=== PATIENT | female | born 1995 | race Caucasian/White ===

== ENCOUNTER 2020-10-05 19:12 | Emergency (ER) | payer MEDICAID ==
[2020-10-05] MEDS ORDERED: Acetaminophen/oxyCODONE 325-5 MG Tab PO ONE (19:34)
--- NOTE | 2020-10-05 19:50 | EDM.PDOC ---
ED HPI GENERAL MEDICAL PROBLEM - General Chief Complaint: Abdominal Pain Stated Complaint: RIGHT SIDE PAIN Time Seen by Provider: 10/05/20 19:21 Source of Information: Reports: Patient, RN Notes Reviewed - History of Present Illness INITIAL COMMENTS - FREE TEXT/NARRATIVE: 25 yr old female comes in with L low back and flank pain for 2 days that at times radiates to R groin. She was seen at the clinic a short time ago, Ua was checked, reported to be "normal". No voiding sx. No fever, chills, nausea or vomiting. No known recent injury. Hx of kidney stones. Still has her appendix. 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: UA prior to arrival Right Abdomen Pain Score (Numeric/FACES): 7 - Related Data Allergies Allergy/AdvReac Type Severity Reaction Status Date / Time Penicillins Allergy Anaphylactic Verified 10/05/20 19:22 Shock Home Meds: Home Meds ARIPiprazole [Abilify] 10 mg PO DAILY 10/05/20 [History] Acetaminophen/HYDROcodone [[place] 325-5 MG] 1 tab PO Q6H PRN #10 tablet 10/05/20 [Rx] Celecoxib [CeleBREX] 100 mg PO DAILY PRN 10/05/20 [History] Famotidine [Pepcid] 20 mg PO BEDTIME 10/05/20 [History] Loperamide [Imodium] 2 mg PO ASDIRECTED PRN 10/05/20 [History] Omeprazole 40 mg PO BID 10/05/20 [History] Propranolol [Inderal] 20 mg PO TID 10/05/20 [History] QUEtiapine [SEROquel] 50 - 100 mg PO BEDTIME 10/05/20 [History] lamoTRIgine [LaMICtal] 150 mg PO DAILY 10/05/20 [History] Past Medical History 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: 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: Psychiatric History: Reports: Bipolar - Past Surgical History HEENT Surgical History: Reports: Adenoidectomy, Tonsillectomy Female Surgical History: Reports: Kidney stone extraction, Lithotripsy/ESWL, Tubal Ligation, Ureteral Stent Social & Family History - Tobacco Use Tobacco Use Status *Q: Current Every Day Tobacco User Years of Tobacco use: 10 Packs/Tins Daily: 0.7 - Caffeine Use Caffeine Use: Reports: Coffee, Soda, Tea - Alcohol Use Days Per Week of Alcohol Use: 7 Number of Drinks Per Day: 6 Total Drinks Per Week: 42 - Recreational Drug Use Recreational Drug Use: Yes Drug Use in Last 12 Months: Yes Recreational Drug Type: Reports: Marijuana/Hashish ED ROS GENERAL - Review of Systems Review Of Systems: See Below Constitutional: Denies: Fever, Chills, Diaphoresis HEENT: Reports: No Symptoms Respiratory: Denies: Shortness of Breath Cardiovascular: Denies: Chest Pain GI/Abdominal: Reports: Abdominal Pain. Denies: Nausea, Vomiting : Denies: Dysuria, Frequency Musculoskeletal: Reports: Back Pain Skin: Reports: No Symptoms Neurological: Reports: No Symptoms ED EXAM,LOWER BACK PAIN/INJURY - Physical Exam Exam: See Below General Appearance: Alert, No Apparent Distress Head: Atraumatic Neck: Supple Respiratory/Chest: No Respiratory Distress, Lungs Clear, Normal Breath Sounds Cardiovascular: Regular Rate, Rhythm GI/Abdominal: Soft, Non-Tender. No: Guarding Back Exam: CVA Tenderness (R) (mild). No: Paraspinal Tenderness, Vertebral Tenderness Extremities: Normal Inspection, Normal Range of Motion Neurological: Alert, No Motor/Sensory Deficits Skin Exam: Warm, Dry, Normal Color, No Rash Course - Vital Signs Last Recorded V/S: Last Vital Signs Temp 97.5 F 10/05/20 19:26 Pulse 92 10/05/20 19:26 Resp 16 10/05/20 19:26 BP 135/85 10/05/20 19:26 Pulse Ox 98 10/05/20 19:26 - Orders/Labs/Meds Orders: Active Orders 24 hr Category Date Time Status Abdomen Pelvis wo Cont [CT] Stat Exams 10/05/20 19:33 Taken Labs: Laboratory Tests 10/05/20 10/05/20 Range/Units 19:43 19:43 WBC 13.85 H (3.98-10.04) K/mm3 RBC 4.77 (3.98-5.22) M/mm3 Hgb 13.6 (11.2-15.7) gm/dl Hct 43.2 (34.1-44.9) % MCV 90.6 (79.4-94.8) fl MCH 28.5 (25.6-32.2) pg MCHC 31.5 L (32.2-35.5) g/dl RDW Std Deviation 45.8 (36.4-46.3) fL Plt Count 292 (182-369) K/mm3 MPV 9.9 (9.4-12.3) fl Neut % (Auto) 62.5 (34.0-71.1) % Lymph % (Auto) 26.6 (19.3-51.7) % [place] % (Auto) 6.5 (4.7-12.5) % Eos % (Auto) 3.9 (0.7-5.8) Baso % (Auto) 0.2 (0.1-1.2) % Neut # (Auto) 8.66 H (1.56-6.13) K/mm3 Lymph # (Auto) 3.68 (1.18-3.74) K/mm3 [place] # (Auto) 0.90 H (0.24-0.36) K/mm3 Eos # (Auto) 0.54 H (0.04-0.36) K/mm3 Baso # (Auto) 0.03 (0.01-0.08) K/mm3 Manual Slide Review Normal smear C-Reactive Protein <0.2 (<1.0) mg/dL Meds: Medications Discontinued Medications Generic Name Dose Route Start Last Admin Trade Name Freq PRN Reason Stop Dose Admin Oxycodone/Acetaminophen 1 tab 10/05/20 19:34 10/05/20 19:40 Percocet 325-5 Mg PO 10/05/20 19:35 1 tab ONETIME ONE Administration - Re-Assessments/Exams Free Text/Narrative Re-Assessment/Exam: 10/05/20 21:14 CT does not show any acute findings, appendix visualized and appears normal. WBC 13,000, CRP 0.2. She states Ua checked at clinic this late afternoon was normal so that has not been repeated. Discharge instr. as documented. Departure - Departure Time of Disposition: 21:18 Disposition: Home, Self-Care 01 Condition: Fair Clinical Impression: Back pain Abdominal pain Qualifiers: Abdominal location: right lower quadrant Qualified Code(s): R10.31 - Right lower quadrant pain - Discharge Information Prescriptions: Acetaminophen/HYDROcodone [[place] 325-5 MG] 1 tab PO Q6H PRN #10 tablet PRN Reason: Pain Instructions: Acute Back Pain, Adult, Abdominal Pain, Adult, [id number] Referrals: Aby Murry MD [Primary Care Provider] - Forms: ED Department Discharge Additional Instructions: Clear liquids and very bland diet as tolerated. Alternate heat and ice packs as needed. Alternate tylenol and ibuprofen for mild to moderate discomfort or hydrocodone if needed for more severe pain. Prescription has been sent electronic to [facility]. See Dr Menendez Sunday as planned. Return to ED as needed. Sepsis Event Note (ED) - Evaluation Sepsis Screening Result: No Definite Risk - Focused Exam Vital Signs: Vital Signs Temp Pulse Resp BP Pulse Ox 10/05/20 19:26 97.5 F 92 16 135/85 98 - My Orders Last 24 Hours: My Active Orders 10/05/20 19:33 Abdomen Pelvis wo Cont [CT] Stat - Assessment/Plan Last 24 Hours: My Active Orders 10/05/20 19:33 Abdomen Pelvis wo Cont [CT] Stat
--- NOTE | 2020-10-06 09:04 | CT ---
CT abdomen and pelvis Technique: Multiple axial sections were obtained from above the dome of the diaphragm inferiorly through the pubic symphysis. Intravenous and oral contrast not utilized. Study has been performed as a ureteral stone protocol. Comparison: No previous study is available. Findings: Small portion of the visualized lung bases show nothing acute. Liver is enlarged and shows diffuse fatty infiltration. Spleen appears within normal limits. Adrenal glands show no nodule. Pancreas shows no discrete abnormality. Gallbladder is mostly collapsed without definite calcifications to indicate calcified gallstones. Both kidneys show multiple small nonobstructing calculi. Calculi measure 5.9 mm and less in length. No hydronephrosis is seen within either kidney. No ureteral dilatation or ureteral stone is seen. No bladder calculi are seen. Aorta shows no aneurysm. No retroperitoneal adenopathy or mesenteric abnormalities are seen. Appendix is seen which is normal. No pelvic mass or adenopathy is identified. No free fluid or inflammatory change is appreciated. Bone window settings were reviewed. No acute osseous abnormality is appreciated. Impression: 1. Numerous nonobstructing small calculi within both kidneys. No ureteral dilatation or ureteral stone is seen. 2. Fatty infiltration within the liver. 3. Nothing acute is definitely appreciated. Diagnostic code #3 I agree with preliminary report from [facility], finalized on 10/05/20, 9:45 PM [employer]
== END 2020-10-05 21:25 | disposition home or self-care (01) ==
LOC: JD.ED 19:12
DX: R10.31 Right lower quadrant pain (principal); M54.5 Low back pain; K21.9 Gastro-esophageal reflux disease without esophagitis; Z88.0 Allergy status to penicillin; Z79.899 Other long term (current) drug therapy; Z72.0 Tobacco use
CPT/HCPCS: 36415; 74176; 74176-26; 85025; 86140; 99284; 99284-25; A9270-GY

== ENCOUNTER 2020-10-31 09:39 | Emergency (ER) | payer MEDICAID ==
[2020-10-31] MEDS ORDERED: Ondansetron 4 MG Tab.DIS ONE (10:26)
[2020-10-31] MEDS ORDERED: Ondansetron 4 MG Tab.DIS PO STA (10:27)
--- NOTE | 2020-10-31 10:45 | EDM.PDOC ---
<Joe Ng Reza - Last Filed: 10/31/20 10:45> ED HPI GENERAL MEDICAL PROBLEM - General Chief Complaint: Back Pain or Injury Stated Complaint: KIDNEY PAIN/ R SIDE BACK PAIN Time Seen by Provider: 10/31/20 10:45 Right Middle Back Pain Score (Numeric/FACES): 8 - Related Data Allergies Allergy/AdvReac Type Severity Reaction Status Date / Time Penicillins Allergy Anaphylactic Verified 10/31/20 09:51 Shock Home Meds: Home Meds ARIPiprazole [Abilify] 10 mg PO DAILY 10/05/20 [History] Celecoxib [CeleBREX] 100 mg PO DAILY PRN 10/05/20 [History] Famotidine [Pepcid] 20 mg PO BEDTIME 10/05/20 [History] Loperamide [Imodium] 2 mg PO ASDIRECTED PRN 10/05/20 [History] Omeprazole 40 mg PO BID 10/05/20 [History] Propranolol [Inderal] 20 mg PO TID 10/05/20 [History] QUEtiapine [SEROquel] 50 - 100 mg PO BEDTIME 10/05/20 [History] lamoTRIgine [LaMICtal] 150 mg PO DAILY 10/05/20 [History] Levothyroxine [Synthroid] 50 mcg PO DAILY 10/31/20 [History] Past Medical History 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: Psychiatric History: Reports: Bipolar - Past Surgical History HEENT Surgical History: Reports: Adenoidectomy, Tonsillectomy Female Surgical History: Reports: Kidney stone extraction, Lithotripsy/ESWL, Tubal Ligation, Ureteral Stent Social & Family History - Tobacco Use Tobacco Use Status *Q: Current Every Day Tobacco User Years of Tobacco use: 5 Packs/Tins Daily: 0.7 - Caffeine Use Caffeine Use: Reports: None - Recreational Drug Use Recreational Drug Use: No Departure - Discharge Information Referrals: Aby Murry MD [Primary Care Provider] - Forms: ED Department Discharge Sepsis Event Note (ED) - Evaluation Sepsis Screening Result: No Definite Risk <Charity Ashley - Last Filed: 10/31/20 11:43> ED HPI GENERAL MEDICAL PROBLEM - General Source of Information: Reports: Patient, RN Notes Reviewed History Limitations: Reports: No Limitations Course - Vital Signs Last Recorded V/S: Last Vital Signs Temp 97.5 F 10/31/20 09:47 Pulse 98 10/31/20 09:47 Resp 16 10/31/20 09:47 BP 122/93 H 10/31/20 09:47 Pulse Ox 98 10/31/20 09:47 - Orders/Labs/Meds Orders: Active Orders 24 hr Category Date Time Status Abdomen Pelvis wo Cont [CT] Stat Exams 10/31/20 11:17 Ordered Labs: Laboratory Tests 10/31/20 Range/Units 10:20 Urine Color Yellow (Yellow) Urine Appearance Clear (Clear) Urine pH 6.5 (5.0-8.0) Ur Specific [place] 1.020 (1.005-1.030) Urine Protein Negative (Negative) Urine Glucose (UA) Negative (Negative) Urine Ketones Negative (Negative) Urine Occult Blood Negative (Negative) Urine Nitrite Negative (Negative) Urine Bilirubin Negative (Negative) Urine Urobilinogen 0.2 (0.2-1.0) Ur Leukocyte Esterase Negative (Negative) Meds: Medications Discontinued Medications Generic Name Dose Route Start Last Admin Trade Name Freq PRN Reason Stop Dose Admin Cyclobenzaprine HCl 10 mg 10/31/20 11:21 10/31/20 11:31 Flexeril PO 10/31/20 11:22 10 mg ONETIME ONE Administration Ketorolac Tromethamine 60 mg 10/31/20 11:21 10/31/20 11:31 Toradol IM 10/31/20 11:22 60 mg ONETIME ONE Administration Ondansetron HCl Confirm 10/31/20 10:26 10/31/20 10:28 Zofran Odt Administered 10/31/20 10:27 Not Given Dose 4 mg .ROUTE .STK-MED ONE Ondansetron HCl 4 mg 10/31/20 10:27 10/31/20 10:28 Zofran Odt PO 10/31/20 10:28 4 mg ONETIME STA Administration Sepsis Event Note (ED) - Focused Exam Vital Signs: Vital Signs Temp Pulse Resp BP Pulse Ox 10/31/20 09:47 97.5 F 98 16 122/93 H 98 - My Orders Last 24 Hours: My Active Orders 10/31/20 11:17 Abdomen Pelvis wo Cont [CT] Stat - Assessment/Plan Last 24 Hours: My Active Orders 10/31/20 11:17 Abdomen Pelvis wo Cont [CT] Stat
[2020-10-31] MEDS ORDERED: Cyclobenzaprine 10 MG Tab PO ONE (11:21)
[2020-10-31] MEDS ORDERED: Ketorolac 60 MG/2 ML SDV IM ONE (11:21)
--- NOTE | 2020-10-31 11:46 | EDM.PDOC ---
ED HPI GENERAL MEDICAL PROBLEM - General Chief Complaint: Back Pain or Injury Stated Complaint: KIDNEY PAIN/ R SIDE BACK PAIN Time Seen by Provider: 10/31/20 10:45 Source of Information: Reports: Patient, RN Notes Reviewed History Limitations: Reports: No Limitations - History of Present Illness INITIAL COMMENTS - FREE TEXT/NARRATIVE: Patient is a 25-year-old female presenting to the emergency department with complaints of right lower back pain. Pain is worse with movement and with urination. States this has been going on for a number of weeks. She was seen in this emergency department on [address] scan was done at that time and showed a number of calculi within the kidneys but not within the ureters. She states that since that time she was seen by her primary care provider who advised her that she feels the pain is musculoskeletal in nature and recommends that she see physical therapy. She has not done this thus far. The pain has been worse over the last couple days. She is convinced that it is being caused by her kidney. She has taken Tylenol and ibuprofen with little relief. She does have some nausea but has had no vomiting. Denies any fever or chills. Right Middle Back Pain Score (Numeric/FACES): 8 - Related Data Allergies Allergy/AdvReac Type Severity Reaction Status Date / Time Penicillins Allergy Anaphylactic Verified 10/31/20 09:51 Shock Home Meds: Home Meds ARIPiprazole [Abilify] 10 mg PO DAILY 10/05/20 [History] Celecoxib [CeleBREX] 100 mg PO DAILY PRN 10/05/20 [History] Famotidine [Pepcid] 20 mg PO BEDTIME 10/05/20 [History] Loperamide [Imodium] 2 mg PO ASDIRECTED PRN 10/05/20 [History] Omeprazole 40 mg PO BID 10/05/20 [History] Propranolol [Inderal] 20 mg PO TID 10/05/20 [History] QUEtiapine [SEROquel] 50 - 100 mg PO BEDTIME 10/05/20 [History] lamoTRIgine [LaMICtal] 150 mg PO DAILY 10/05/20 [History] Cyclobenzaprine [Flexeril] 10 mg PO TID PRN #10 tab 10/31/20 [Rx] Levothyroxine [Synthroid] 50 mcg PO DAILY 10/31/20 [History] Naproxen [Naprosyn] 500 mg PO Q12HR 5 Days #10 tab 10/31/20 [Rx] Past Medical History 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: 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 Denies: Fever, Chills, Weakness HEENT: Reports: No Symptoms Respiratory: Reports: No Symptoms Cardiovascular: Reports: No Symptoms Endocrine: Reports: No Symptoms GI/Abdominal: Reports: Nausea. Denies: Abdominal Pain, Vomiting : Reports: No Symptoms Musculoskeletal: Reports: Back Pain Skin: Reports: No Symptoms Neurological: Reports: No Symptoms Psychiatric: Reports: No Symptoms Hematologic/Lymphatic: Reports: No Symptoms Immunologic: Reports: No Symptoms ED EXAM,LOWER BACK PAIN/INJURY - Physical Exam Exam: See Below General Appearance: Alert, WD/WN, No Apparent Distress Respiratory/Chest: No Respiratory Distress, Lungs Clear, Normal Breath Sounds, No Accessory Muscle Use, Chest Non-Tender Cardiovascular: Normal Peripheral Pulses, Regular Rate, Rhythm, No Edema, No Gallop, No JVD, No Murmur, No Rub GI/Abdominal: Normal Bowel Sounds, Soft, Non-Tender, No Organomegaly, No Distention, No Abnormal Bruit, No Mass Back Exam: Normal Inspection, Full Range of Motion, CVA Tenderness (R), Paraspinal Tenderness (To superficial touch) Neurological: Alert, Normal Mood/Affect, Normal Dorsiflexion, CN II-XII Intact, Normal Plantar Flexion, Normal Gait, Normal Reflexes, No Motor/Sensory Deficits, Oriented x 3 Psychiatric: Normal Affect, Normal Mood Skin Exam: Warm, Dry, Intact, Normal Color, No Rash Course - Vital Signs Last Recorded V/S: Last Vital Signs Temp 97.5 F 10/31/20 09:47 Pulse 98 10/31/20 09:47 Resp 16 10/31/20 09:47 BP 122/93 H 10/31/20 09:47 Pulse Ox 98 10/31/20 09:47 - Orders/Labs/Meds Labs: Laboratory Tests 10/31/20 Range/Units 10:20 Urine Color Yellow (Yellow) Urine Appearance Clear (Clear) Urine pH 6.5 (5.0-8.0) Ur Specific [place] 1.020 (1.005-1.030) Urine Protein Negative (Negative) Urine Glucose (UA) Negative (Negative) Urine Ketones Negative (Negative) Urine Occult Blood Negative (Negative) Urine Nitrite Negative (Negative) Urine Bilirubin Negative (Negative) Urine Urobilinogen 0.2 (0.2-1.0) Ur Leukocyte Esterase Negative (Negative) Meds: Medications Discontinued Medications Generic Name Dose Route Start Last Admin Trade Name Freq PRN Reason Stop Dose Admin Cyclobenzaprine HCl 10 mg 10/31/20 11:21 10/31/20 11:31 Flexeril PO 10/31/20 11:22 10 mg ONETIME ONE Administration Ketorolac Tromethamine 60 mg 10/31/20 11:21 10/31/20 11:31 Toradol IM 10/31/20 11:22 60 mg ONETIME ONE Administration Ondansetron HCl Confirm 10/31/20 10:26 10/31/20 10:28 Zofran Odt Administered 10/31/20 10:27 Not Given Dose 4 mg .ROUTE .STK-MED ONE Ondansetron HCl 4 mg 10/31/20 10:27 10/31/20 10:28 Zofran Odt PO 10/31/20 10:28 4 mg ONETIME STA Administration - Re-Assessments/Exams Free Text/Narrative Re-Assessment/Exam: Patient is a 25-year-old female presenting to the emergency department with complaints of ongoing right back pain. She states symptoms are worse with voiding. Urinalysis was connected by triage nurse and shows no blood or infection in her urine. On exam, she does have CVA tenderness but is also quite tender to superficial palpation of the right paraspinous muscles. I highly suspect this is musculoskeletal in nature, however it was decided to repeat the CT scan to ensure that the kidney stones are not moving. We will give her Toradol 60 mg IM as well as Flexeril 10 mg p.o. 10/31/20 12:10 CT of the abdomen pelvis shows multiple nonobstructing calculi within both kidneys with no ureteral dilatation or ureteral stone seen. Also has fatty infiltrates throughout the liver. This is unchanged from her previous CT. Discussed with patient that her pain is likely musculoskeletal is Dr. Dumas advised. I will send a prescription for Naprosyn and Flexeril. Recommend that she schedule an appointment with physical therapy as recommended by her primary care provider. Discharge instructions as documented. Departure - Departure Time of Disposition: 12:10 Disposition: Home, Self-Care 01 Condition: Good Clinical Impression: Back pain Qualifiers: Back pain location: low back pain Chronicity: acute Back pain laterality: right Sciatica presence: without sciatica Qualified Code(s): M54.5 - Low back pain - Discharge Information *PRESCRIPTION DRUG MONITORING PROGRAM REVIEWED*: No *COPY OF PRESCRIPTION DRUG MONITORING REPORT IN PATIENT MARVA: No Prescriptions: Cyclobenzaprine [Flexeril] 10 mg PO TID PRN #10 tab PRN Reason: Muscle Spasm Naproxen [Naprosyn] 500 mg PO Q12HR 5 Days #10 tab Instructions: Acute Back Pain, Adult Referrals: Aby Murry MD [Primary Care Provider] - Forms: ED Department Discharge Additional Instructions: You were seen in the emergency department today for evaluation with regards to ongoing right-sided back pain. Urinalysis and CT scan were completed and both were found to be normal. He did not have any active moving kidney stones and you do not have a urinary tract infection. As we discussed, your pain is musculoskeletal in nature. A prescription for Naprosyn and Flexeril has been sent to [facility]. Uses medications as prescribed. Recommend scheduling an appointment with physical therapy as recommended by your primary care provider. If pain does not improve, recommend follow-up in the clinic with your PCP or return to ER as needed. Sepsis Event Note (ED) - Evaluation Sepsis Screening Result: No Definite Risk - Focused Exam Vital Signs: Vital Signs Temp Pulse Resp BP Pulse Ox 10/31/20 09:47 97.5 F 98 16 122/93 H 98
--- NOTE | 2020-10-31 11:54 | CT ---
CT abdomen and pelvis Technique: Multiple axial sections were obtained from above the kidneys inferiorly through the pubic symphysis. Intravenous and oral contrast was not utilized. Study has been performed as a renal stone protocol. Comparison: Prior CT abdomen and pelvis exam of 10/05/20. Findings: Visualized lung bases showed nothing acute. Diffuse fatty infiltration is seen within the liver. Gallbladder contains no calcified gallstones. Spleen appears normal in size. Adrenal glands show no nodule. Pancreas shows no discrete abnormality. Aorta shows no aneurysm. Small scattered lymph nodes within the retroperitoneum are seen which are most likely normal. Appendix is seen which is normal in size. No pelvic mass or adenopathy is seen. Minimal diverticulosis is seen within the sigmoid colon with no inflammatory change. Multiple small nonobstructing calculi are noted within both kidneys. No ureteral dilatation is seen. No abnormal calcifications are seen along the course of the ureters. Bone window settings were reviewed which show no acute osseous abnormality. Impression: 1. Multiple nonobstructing calculi within both kidneys. No ureteral dilatation or ureteral stone is seen. 2. Fatty infiltration throughout the liver. 3. No acute abnormality is seen on noncontrast CT study of the abdomen and pelvis. Diagnostic code #3
== END 2020-10-31 12:25 | disposition home or self-care (01) ==
LOC: JD.ED 09:39
DX: M54.5 Low back pain (principal); R11.0 Nausea; K21.9 Gastro-esophageal reflux disease without esophagitis; Z72.0 Tobacco use; Z79.899 Other long term (current) drug therapy; Z88.0 Allergy status to penicillin
CPT/HCPCS: 74176; 81003; 96372; 99284; A9270; J1885

== ENCOUNTER 2020-12-30 06:14 | Emergency (ER) | payer MEDICAID ==
[2020-12-30] MEDS ORDERED: LORazepam 1 MG Tab PO ONE (06:39)
--- NOTE | 2020-12-30 06:46 | EDM.PDOCBH ---
ED HPI GENERAL MEDICAL PROBLEM - General Chief Complaint: Behavioral/Psych Stated Complaint: SOB POSS ANXIETY NAUSEA Time Seen by Provider: 12/30/20 06:27 Source of Information: Reports: Patient History Limitations: Reports: No Limitations - History of Present Illness INITIAL COMMENTS - FREE TEXT/NARRATIVE: Ms. Russo is a pleasant 25-year-old woman with a past medical history significant for anxiety, depression, and bipolar affective disorder, currently prescribed Seroquel and Lamictal, who now presents to the ED stating that she has been suffering from a panic attack for approximately 1 week, including symptoms of dyspnea, feeling anxious, diaphoresis, and insomnia, along with 4 days of nausea and vomiting, and some watery diarrhea today. No recent fever. The patient states that she has been compliant with her medications. She states that she has had similar symptoms countless times in the past. She acknowledges that she has not contacted either her PCP or her Psychiatrist.her symptoms over the past week. Here in the ED, the patient is found to be slightly tachycardic at 106 bpm, with tachypnea of 24 rpm. She is otherwise hemodynamically stable, afebrile, saturating 99% on room air. She appears to be quite anxious, pacing the exam room. Prior to 1 week ago, the patient denies having a recent fever, chills, sore throat, ear pain, nasal or sinus congestion, cough, dyspnea, chest pain, palpitations, nausea, vomiting, constipation, diarrhea, abdominal pain, urinary symptoms, recent weight gain or weight loss, recent bloody bowel movements or black bowel movements, recent joint aches, headaches, or rashes. The patient's PCP is Dr. Aby Menendez. She does not recall the name of her Psychiatrist, at [facility]. - Related Data Allergies Allergy/AdvReac Type Severity Reaction Status Date / Time Penicillins Allergy Anaphylactic Verified 12/30/20 06:25 Shock Home Meds: Home Meds ARIPiprazole [Abilify] 10 mg PO DAILY 10/05/20 [History] Celecoxib [CeleBREX] 100 mg PO DAILY PRN 10/05/20 [History] Famotidine [Pepcid] 20 mg PO BEDTIME 10/05/20 [History] Loperamide [Imodium] 2 mg PO ASDIRECTED PRN 10/05/20 [History] Omeprazole 40 mg PO BID 10/05/20 [History] Propranolol [Inderal] 20 mg PO TID 10/05/20 [History] QUEtiapine [SEROquel] 50 - 100 mg PO BEDTIME 10/05/20 [History] lamoTRIgine [LaMICtal] 150 mg PO DAILY 10/05/20 [History] Cyclobenzaprine [Flexeril] 10 mg PO TID PRN #10 tab 10/31/20 [Rx] Levothyroxine [Synthroid] 50 mcg PO DAILY 10/31/20 [History] Naproxen [Naprosyn] 500 mg PO Q12HR 5 Days #10 tab 10/31/20 [Rx] Past Medical History 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: GERD Genitourinary History: Reports: Renal Calculus Psychiatric History: Reports: Anxiety, Bipolar, Depression Endocrine/Metabolic History: Reports: Hypothyroidism, Obesity/BMI 30+ - Past Surgical History HEENT Surgical History: Reports: Adenoidectomy, Tonsillectomy Female Surgical History: Reports: Kidney stone extraction, Lithotripsy/ESWL, Tubal Ligation, Ureteral Stent Social & Family History - Tobacco Use Tobacco Use Status *Q: Current Every Day Tobacco User Years of Tobacco use: 11 Packs/Tins Daily: 0.8 Tobacco Use Comment: Started smoking at 14 yrs old - Caffeine Use Caffeine Use: Reports: None - Alcohol Use Alcohol Use History: No - Recreational Drug Use Recreational Drug Use: Yes Drug Use in Last 12 Months: Yes Recreational Drug Type: Reports: Marijuana/Hashish ("whenever I can") - Living Situation & Occupation Living situation: Reports: Single, with Significant Other (Boyfriend), with Family (3 kids) Occupation: Unemployed ED ROS GENERAL - Review of Systems Review Of Systems: Comprehensive ROS is negative, except as noted in HPI. ED EXAM, BEHAVIORAL HEALTH - Physical Exam Exam: See Below Exam Limited By: No Limitations General Appearance: Alert, WD/WN, No Apparent Distress, Anxious Eye Exam: Bilateral Eye: EOMI, Normal Inspection Ears: Normal External Exam, Hearing Grossly Normal Nose: Normal Inspection Throat/Mouth: Normal Inspection, Normal Lips, Normal Voice, No Airway Compromise Head: Atraumatic, Normocephalic Neck: Normal Inspection, Full Range of Motion Respiratory/Chest: No Respiratory Distress, Lungs Clear, Normal Breath Sounds, No Accessory Muscle Use Cardiovascular: Normal Peripheral Pulses, Regular Rate, Rhythm, No Gallop, No JVD, No Murmur, No Rub GI/Abdominal: Normal Bowel Sounds, Soft, Non-Tender, No Organomegaly, No Distention, No Abnormal Bruit, No Mass Back Exam: Normal Inspection, Full Range of Motion, NT Extremities: Normal Inspection, Normal Range of Motion, Normal Capillary Refill Neurological: Alert, Normal Cognition, No Motor/Sensory Deficits, Oriented x 3 Psychiatric: Restless (pacing the exam room) Skin Exam: Warm, Dry, Intact, Normal color, No rash COURSE, BEHAVIORAL HEALTH COMP - Course Vital Signs: Last Vital Signs Temp 36.6 C 12/30/20 06:22 Pulse 106 H 12/30/20 06:22 Resp 24 H 12/30/20 06:22 BP 125/90 12/30/20 06:22 Pulse Ox 99 12/30/20 06:22 Orders, Labs, Meds: Medications Discontinued Medications Generic Name Dose Route Start Last Admin Trade Name Freq PRN Reason Stop Dose Admin Lorazepam 1 mg 12/30/20 06:39 Lorazepam 1 Mg Tab PO 12/30/20 06:40 ONETIME ONE Medical Clearance: 12/30/20 06:40 As above, the patient has been feeling extremely anxious for the past week, including dyspnea, diaphoresis, and insomnia, with nausea and vomiting for the past 4 days, and some diarrhea today. She has been compliant with her prescribed psychiatric medications, however, she did not contact her PCP or her Psychiatrist about her current symptoms. For today's purposes, I will give the patient a single dose of Ativan, however, I explained to the patient that I am not going to be prescribing any additional, because her PCP is well aware of her recurrent anxiety symptoms, and has elected, for whatever reason, to not prescribe a benzodiazepine as treatment. I explained to the patient that it would not be appropriate for us to go behind Dr. Menendez's back and prescribe one. Since today is , there is no reason why the patient cannot contact Dr. Menendez's office later this morning. The patient is in agreement. Departure - Departure Time of Disposition: 06:43 Disposition: Home, Self-Care 01 Condition: Good Clinical Impression: Panic attack - Discharge Information *PRESCRIPTION DRUG MONITORING PROGRAM REVIEWED*: Not Applicable *COPY OF PRESCRIPTION DRUG MONITORING REPORT IN PATIENT MARVA: Not Applicable Referrals: Aby Murry MD [Primary Care Provider] - Additional Instructions: You were seen in the emergency room for symptoms of anxiety, including shortness of breath, sweatiness, and insomnia, with 4 days of nausea vomiting, and diarrhea today. You were treated with a single dose of the sedative Ativan, however, as explained, a prescription for Ativan was not provided, as the decision to prescribe such a medicine is up to your PCP, Dr. Aby Menendez. We recommend that you call the office of Dr. Menendez this morning, to see what she recommends. If any other problems, please do not hesitate to return to the ER. Sepsis Event Note (ED) - Evaluation Sepsis Screening Result: No Definite Risk - Focused Exam Vital Signs: Vital Signs Temp Pulse Resp BP Pulse Ox 12/30/20 06:22 36.6 C 106 H 24 H 125/90 99
== END 2020-12-30 06:52 | disposition home or self-care (01) ==
LOC: JD.ED 06:14
DX: F41.0 Panic disorder [episodic paroxysmal anxiety] (principal); K21.9 Gastro-esophageal reflux disease without esophagitis; E03.9 Hypothyroidism, unspecified; E66.9 Obesity, unspecified; Z72.0 Tobacco use; Z68.32 Body mass index [BMI] 32.0-32.9, adult; Z88.0 Allergy status to penicillin; Z79.899 Other long term (current) drug therapy
CPT/HCPCS: 99283; A9270

== ENCOUNTER 2021-02-02 08:30 | Emergency (ER) | payer MEDICAID ==
[2021-02-02] MEDS ORDERED: HYDROmorphone 0.5 MG/0.5 ML Syringe IVPUSH ONE (08:55)
[2021-02-02] MEDS ORDERED: Ondansetron 4 MG/2 ML SDV IVPUSH ONE (08:55)
--- NOTE | 2021-02-02 08:55 | EDM.PDOC ---
ED HPI GENERAL MEDICAL PROBLEM - General Chief Complaint: Abdominal Pain Stated Complaint: DIARRHEA/BLOOD IN STOOL/VOMITING/ABDOMINAL PAIN Time Seen by Provider: 02/02/21 08:46 Source of Information: Reports: Patient History Limitations: Reports: No Limitations - History of Present Illness INITIAL COMMENTS - FREE TEXT/NARRATIVE: 25-year-old female presents to the ED with bleeding per rectum. Patient reports that she has had a chronic issues for many years of intestinal hurry and chronic diarrhea. She has had colonoscopies and other investigations with no positive diagnoses. She has been vomiting over the night. She has been on the toilet since about 3:00 this morning and had multiple loose diarrhea stools usually yellow and mucousy. Usually food will go through her within about 20 minutes of eating. Associated mild diffuse lower abdominal cramping pain. This morning she had bright red blood per rectum on multiple occasions with wiping. She has no known history of hemorrhoids. Patient is on numerous antipsychotic medications. She takes loperamide or Imodium at least once or twice daily to slow her bowels down. She has not taken any medicine for medications this morning. Only previous abdominal surgery has been that of laparoscopic tubal ligation Onset: Other (Chronic issues with intermittent bleeding per rectum) Duration: Chronic, Getting Worse Location: Reports: Abdomen (Chronic abdominal cramping pain with yellow diarrhea. Today is associate with bright red bleeding per rectum. Unlikely to be related to foodborne illness.), Lower Extremity, Right Quality: Reports: Other Severity: Moderate (Bright red blood per rectum particular noted with wiping.) Improves with: Reports: None Worsens with: Reports: Eating Context: Reports: Other (Chronic diarrhea with intestinal hurry.). Denies: Activity (Eating will make it worse.), Exercise, Lifting, Sick Contact, Trauma Associated Symptoms: Reports: Loss of Appetite, Malaise, Nausea/Vomiting, Weakness. Denies: Confusion, Chest Pain, Cough, cough w sputum, Diaphoresis, Fever/Chills, Headaches, Rash, Seizure (Nausea today with vomiting overnight. Bilious emesis with no blood), Shortness of Breath, Syncope Treatments KETTLE HAND: Reports: Other (see below) Middle Abdomen Pain Score (Numeric/FACES): 6 - Related Data Allergies Allergy/AdvReac Type Severity Reaction Status Date / Time Penicillins Allergy Anaphylactic Verified 02/02/21 08:44 Shock Home Meds: Home Meds Celecoxib [CeleBREX] 100 mg PO DAILY PRN 10/05/20 [History] Loperamide [Imodium] 2 mg PO ASDIRECTED PRN 10/05/20 [History] Omeprazole 40 mg PO BID 10/05/20 [History] Propranolol [Inderal] 20 mg PO TID 10/05/20 [History] QUEtiapine [SEROquel] 50 - 100 mg PO BEDTIME 10/05/20 [History] lamoTRIgine [LaMICtal] 150 mg PO DAILY 10/05/20 [History] Cyclobenzaprine [Flexeril] 10 mg PO TID PRN #10 tab 10/31/20 [Rx] Levothyroxine [Synthroid] 50 mcg PO DAILY 10/31/20 [History] Dicyclomine [Bentyl] 20 mg PO Q6H PRN #20 tablet 02/02/21 [Rx] Ondansetron [Zofran] 4 mg BUCCAL Q6H PRN #12 tab 02/02/21 [Rx] Past Medical History 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: Chronic Diarrhea (Chronic diarrhea for last 5 to 6 years.), GERD Genitourinary History: Reports: Renal Calculus 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: Reports: Psychiatric History: Reports: Anxiety, Bipolar, Depression Endocrine/Metabolic History: Reports: Hypothyroidism, Obesity/BMI 30+ - Past Surgical History HEENT Surgical History: Reports: Adenoidectomy, Tonsillectomy Female Surgical History: Reports: Kidney stone extraction, Lithotripsy/ESWL, Tubal Ligation, Ureteral Stent Social & Family History - Tobacco Use Tobacco Use Status *Q: Current Every Day Tobacco User Years of Tobacco use: 10 Packs/Tins Daily: 0.7 - Caffeine Use Caffeine Use: Reports: None - Recreational Drug Use Recreational Drug Type: Reports: Marijuana/Hashish - Living Situation & Occupation Living situation: Reports: Single, with Significant Other (Boyfriend), with Family (3 kids) Occupation: Unemployed ED ROS GENERAL - Review of Systems Review Of Systems: See Below Constitutional: Reports: Malaise, Weakness, Fatigue. Denies: Fever, Chills, Weight Loss HEENT: Reports: Glasses Respiratory: Reports: No Symptoms Cardiovascular: Reports: No Symptoms Endocrine: Reports: Fatigue GI/Abdominal: Reports: Abdominal Pain, Diarrhea (Chronic diarrhea with intermittent blood per rectum. Usually has anywhere between 6 and 10 bowel movements per day. Depending if she takes Imodium which does slow down) : Reports: No Symptoms ( and help form up her stool occasionally.) Musculoskeletal: Reports: Joint Pain (Takes ) Skin: Reports: No Symptoms (Celebrex on an intermittent basis for muscul oskeletal pain.) Neurological: Reports: Dizziness, Weakness. Denies: Headache, Numbness, Syncope, Tingling Psychiatric: Reports: Mood Lability (History of bipolar affective disorder.) Hematologic/Lymphatic: Reports: No Symptoms Immunologic: Reports: No Symptoms ED EXAM, GI/ABD - Physical Exam Exam: See Below Exam Limited By: No Limitations General Appearance: Alert, WD/WN, Anxious, Mild Distress, Other (Temperature is 36.1 degrees. Heart rate 105 and sinus respiratory 16 with O2 sats of 97% room air BP is mildly elevated 10/17/2001.) Eyes: Bilateral: Normal Appearance (No scleral icterus or blepharal pallor.) Throat/Mouth: Normal Inspection, Normal Lips, Normal Oropharynx, Other Head: Atraumatic (Tongue is dry and coated), Normocephalic Neck: Normal Inspection, Supple, Non-Tender, Full Range of Motion. No: Lymphadenopathy (L), Lymphadenopathy (R) Respiratory/Chest: No Respiratory Distress, Lungs Clear, Normal Breath Sounds, No Accessory Muscle Use Cardiovascular: Normal Peripheral Pulses, Regular Rate, Rhythm, No Edema, No Gallop, No Murmur, Tachycardia (Resting tachycardia 100/min.) GI/Abdominal Exam: Normal Bowel Sounds, Soft, Non-Tender, No Organomegaly, No Abnormal Bruit, No Mass, Pelvis Stable, Other (Abdomen is obese.). No: Guarding ( No localized tenderness other than in the epigastrium. Very mild left lower quadrant.), Rigid, Rebound, Tender (She has a healed wound inferior aspect of the umbilicus from previous tubal ligation done laparoscopically.) Rectal (Female) Exam: Normal Exam, Normal Rectal Tone Extremities: Normal Inspection, Normal Range of Motion, Non-Tender, No Pedal Edema Neurological: Alert, Oriented, CN II-XII Intact, Normal Cognition Psychiatric: Anxious Skin Exam: Warm, Dry, Intact, Normal Color, No Rash ED ABDOMINAL/GI PROCEDURES - Additional/Other Procedure(s) Procedure(s) (Free Text): Rigid sigmoidoscopy has been performed up to 17 cm. No blood is encountered in the upper colon. The colon wall looks healthy with no ulcerations. Slight yellow diarrhea was encountered. She has a good deal of inflammation at the anus at the 6 o'clock position with a small anal fissure. There was one hemorrhoid at the 7 o'clock position that is quite small internally and not bleeding. Patient tolerated the procedure well. Course - Vital Signs Last Recorded V/S: Last Vital Signs Temp 36.1 C 02/02/21 08:40 Pulse 105 H 02/02/21 08:40 Resp 16 02/02/21 08:40 BP 130/102 H 02/02/21 08:40 Pulse Ox 97 02/02/21 08:40 - Orders/Labs/Meds Orders: Active Orders 24 hr Category Date Time Status C DIFFICILE PCR W/REFLEX [MOLEC] Stat Lab 02/02/21 08:57 Ordered CELIAC AB TTG DGP TIGA [REF] Stat Lab 02/02/21 09:15 Received OVA & PARASITES BY IMMUNOASSAY [MREF] Stat Lab 02/02/21 09:53 Ordered STOOL CULTURE/SHIGA TOXIN [MREF] Stat Lab 02/02/21 08:56 Ordered Dextrose 5%-Lactated Ringers 1,000 ml Med 02/02/21 09:00 Active IV ASDIRECTED Medication Orders Dextrose/Lactated Ringer's (Dextrose 5%-Lactated Ringers) 1,000 mls @ 999 mls/hr IV ASDIRECTED PARAS Last Admin: 02/02/21 09:16 Dose: 999 mls/hr Documented by: ROMAN Labs: Laboratory Tests 02/02/21 02/02/21 02/02/21 Range/Units 09:15 09:15 09:15 WBC 9.92 (3.98-10.04) K/mm3 RBC 5.47 H (3.98-5.22) M/mm3 Hgb 15.6 D (11.2-15.7) gm/dl Hct 48.1 H (34.1-44.9) % MCV 87.9 (79.4-94.8) fl MCH 28.5 (25.6-32.2) pg MCHC 32.4 (32.2-35.5) g/dl RDW Std Deviation 45.1 (36.4-46.3) fL Plt Count 328 (182-369) K/mm3 MPV 10.7 (9.4-12.3) fl Neut % (Auto) 64.5 (34.0-71.1) % Lymph % (Auto) 25.1 (19.3-51.7) % Bertie % (Auto) 8.3 (4.7-12.5) % Eos % (Auto) 1.7 (0.7-5.8) Baso % (Auto) 0.3 (0.1-1.2) % Neut # (Auto) 6.40 H (1.56-6.13) K/mm3 Lymph # (Auto) 2.49 (1.18-3.74) K/mm3 Bertie # (Auto) 0.82 H (0.24-0.36) K/mm3 Eos # (Auto) 0.17 (0.04-0.36) K/mm3 Baso # (Auto) 0.03 (0.01-0.08) K/mm3 PT (9.7-12.0) SECONDS INR Sodium 141 (136-145) mEq/L Potassium 3.8 (3.5-5.1) mEq/L Chloride 103 (98-107) mEq/L Carbon Dioxide 25 (21-32) mEq/L Anion Gap 16.8 H (5-15) BUN 9 (7-18) mg/dL Creatinine 0.9 (0.55-1.02) mg/dL Est Cr Clr Drug Dosing 80.42 mL/min Estimated GFR (MDRD) > 60 (>60) mL/min BUN/Creatinine Ratio 10.0 L (14-18) Glucose 107 H (70-99) mg/dL Calcium 9.7 (8.5-10.1) mg/dL Magnesium 1.6 L (1.8-2.4) mg/dL Total Bilirubin 0.6 (0.2-1.0) mg/dL AST 54 H (15-37) U/L ALT 118 H (14-59) U/L Alkaline Phosphatase 89 (46-116) U/L C-Reactive Protein 0.6 (<1.0) mg/dL Total Protein 8.2 (6.4-8.2) g/dl Albumin 4.5 (3.4-5.0) g/dl Globulin 3.7 gm/dL Albumin/Globulin Ratio 1.2 (1-2) TSH 3rd Generation 2.149 (0.358-3.74) uIU/mL 02/02/21 Range/Units 09:53 WBC (3.98-10.04) K/mm3 RBC (3.98-5.22) M/mm3 Hgb (11.2-15.7) gm/dl Hct (34.1-44.9) % MCV (79.4-94.8) fl MCH (25.6-32.2) pg MCHC (32.2-35.5) g/dl RDW Std Deviation (36.4-46.3) fL Plt Count (182-369) K/mm3 MPV (9.4-12.3) fl Neut % (Auto) (34.0-71.1) % Lymph % (Auto) (19.3-51.7) % Bertie % (Auto) (4.7-12.5) % Eos % (Auto) (0.7-5.8) Baso % (Auto) (0.1-1.2) % Neut # (Auto) (1.56-6.13) K/mm3 Lymph # (Auto) (1.18-3.74) K/mm3 Bertie # (Auto) (0.24-0.36) K/mm3 Eos # (Auto) (0.04-0.36) K/mm3 Baso # (Auto) (0.01-0.08) K/mm3 PT 10.9 (9.7-12.0) SECONDS INR 1.02 Sodium (136-145) mEq/L Potassium (3.5-5.1) mEq/L Chloride (98-107) mEq/L Carbon Dioxide (21-32) mEq/L Anion Gap (5-15) BUN (7-18) mg/dL Creatinine (0.55-1.02) mg/dL Est Cr Clr Drug Dosing mL/min Estimated GFR (MDRD) (>60) mL/min BUN/Creatinine Ratio (14-18) Glucose (70-99) mg/dL Calcium (8.5-10.1) mg/dL Magnesium (1.8-2.4) mg/dL Total Bilirubin (0.2-1.0) mg/dL AST (15-37) U/L ALT (14-59) U/L Alkaline Phosphatase (46-116) U/L C-Reactive Protein (<1.0) mg/dL Total Protein (6.4-8.2) g/dl Albumin (3.4-5.0) g/dl Globulin gm/dL Albumin/Globulin Ratio (1-2) TSH 3rd Generation (0.358-3.74) uIU/mL Meds: Medications Generic Name Dose Route Start Last Admin Trade Name Freq PRN Reason Stop Dose Admin Dextrose/Lactated Ringer's 1,000 mls @ 999 mls/hr 02/02/21 09:00 02/02/21 09:16 Dextrose 5%-Lactated Ringers IV 999 mls/hr ASDIRECTED PARAS Administration Discontinued Medications Generic Name Dose Route Start Last Admin Trade Name Freq PRN Reason Stop Dose Admin Hydromorphone HCl 0.5 mg 02/02/21 08:55 02/02/21 09:17 Hydromorphone 0.5 Mg/0.5 Ml Syringe IVPUSH 02/02/21 08:56 0.5 mg ONETIME ONE Administration Lidocaine HCl 10 ml 02/02/21 08:58 02/02/21 09:34 Lidocaine 2% Jelly 10 Ml Urojet MUCMEM 02/02/21 08:59 10 ml ONETIME ONE Administration Ondansetron HCl 4 mg 02/02/21 08:55 02/02/21 09:16 Ondansetron 4 Mg/2 Ml Sdv IVPUSH 02/02/21 08:56 4 mg ONETIME ONE Administration - Radiology Interpretation Free Text/Narrative:: 25-year-old female presents to the ED with a chronic history of diarrhea for which she has no diagnosis. She usually has between 6 and 12 bowel movements per day and has for many years. Most recently in the last 2 weeks she has had 2 bouts of diarrhea associate with chills blood per rectum and mucus. This is more noticed with wiping. She denies any pain at the rectum or no painful bowel movement. This happened this morning. She has been up on the toilet since 3:00 this morning having a bowel movement on average every 1/2 hour associate with nausea vomiting. No real history to suggest bad food intake. She does not look anemic. Plan IV will be D5 Ringer's lactate at open. Will be given Dilaudid 0.5 mg IV for abdominal cramping pain which she rates as 4-10. Zofran 4 mg IV for nausea relief. Routine labs to be collected including a TSH. Plan will be to perform a rigid sigmoidoscopy to look for source of rectal bleeding. By researching her current med list multiple medications that she is taking can cause diarrhea as a side effect. This includes propanolol which she is taking 20 mg 3 times daily. Seroquel can cause diarrhea. Celebrex can cause diarrhea. And high-dose omeprazole can cause diarrhea. She is on 40 mg twice daily. Flexeril is likely cause anticholinergic effect of constipation. - Re-Assessments/Exams Free Text/Narrative Re-Assessment/Exam: 02/02/21 10:08 White count is normal at 9.92. Differential reveals 64.5% neutrophils on the auto differential. Hemoglobin is 15.6. Hematocrit is 48.1. Platelet count is 328,000. Sodium 141 with potassium of 3.8. Chloride 103 with a bicarb of 25. Anion gap is minimally elevated at 16.8. BUN is nine with a creatinine of 0.9. GFR is greater than 60. Glucose is 107 calcium 9.7 magnesium slightly low at 1.6 total bilirubin is 0.6. AST is 54 with an ALT of 118 presumably due to fatty liver disease. Alkaline phosphatase is 89. C-reactive protein is 0.6. Total protein is 8.2 albumin fraction is 4.5. 02/02/21 11:51 Patient ate all of her breakfast/dinner without any issues. No increased pain no nausea vomiting and no diarrhea. She will thus be sent home to collect stool for culture and sensitivity and ova and parasites like although anticipate them to be normal. My suspicion is that her current chronic diarrhea is likely due to medications. 40 mg of omeprazole twice daily is very famous for causing cramping and diarrhea. Similarly ,Lamictal can cause diarrhea. Propanolol can cause diarrhea especially taken 3 times daily. Celebrex can cause diarrhea as well although she indicates she rarely takes this medication. Patient had prescription written for Zofran 4 mg sublingual to be taken every 6 hours as needed for nausea or vomiting relief. Bentyl 20 mg every 6 hours as needed for relief of abdominal Pain and/or diarrhea. I have sent away lab work for gluten intolerance although anticipate this to be normal as she is not got the body habitus of someone with chronic sprue. Departure - Departure Time of Disposition: 11:35 Disposition: Home, Self-Care 01 Condition: Fair Clinical Impression: Chronic diarrhea of unknown origin Nausea and vomiting Qualifiers: Vomiting type: bilious vomiting Qualified Code(s): R11.14 - Bilious vomiting - Discharge Information *PRESCRIPTION DRUG MONITORING PROGRAM REVIEWED*: Not Applicable *COPY OF PRESCRIPTION DRUG MONITORING REPORT IN PATIENT MARVA: Not Applicable Prescriptions: Dicyclomine [Bentyl] 20 mg PO Q6H PRN #20 tablet PRN Reason: Abdominal cramps/diarrhea Ondansetron [Zofran] 4 mg BUCCAL Q6H PRN #12 tab PRN Reason: nausea or vomiting Instructions: Nausea and Vomiting, Adult, Diarrhea, Adult, [id number] Referrals: Aby Murry MD [Primary Care Provider] - Forms: ED Department Discharge Additional Instructions: Evaluation in the emergency room today in regards to intractable nausea and vomiting that started overnight associated with chronic diarrhea. Diarrhea was significant overnight with noted blood on wiping. Sigmoidoscope exam performed reveals a small anal fissure at the 6 o'clock position and inflammation of the anus without any ulcerations. No sign of ulcerative colitis or inflammatory bowel disease. The mucosa of the lower rectum appears otherwise healthy. There was 1 small internal hemorrhoid that was not bleeding at the 7 o'clock position. You were not able to produce a stool sample while in the emergency room. It is my suggestion that you collect 2 separate stool samples for ova and parasites and culture and sensitivity and bring them back to the lab once they are available for analysis. I believe they are send outs to a larger lab at this time and answers will not be back for between 3 and 5 days. Looking at your med list there are multiple medications that may be playing a role in chronic diarrhea such as propanolol 20 mg 3 times daily is associated with diarrhea and some patients. Alternative medicine may be available to you for anxiety relief. Omeprazole 40 mg twice daily is very common to be causing chronic diarrhea and abdominal cramping pain. Lamictal can cause diarrhea as can Lamictal on occasions. It may be worth a drug holiday dropping 1 medication at a time for a week or more to see if diarrhea improves. I have written prescriptions for Zofran 4 mg to be taken under the tongue every 4-6 hours necessary for relief of nausea or vomiting. Bentyl 20 mg by mouth every 6 hours as needed for relief of abdominal cramping pain and it will reduce diarrhea as well. Try and avoid all dairy products if possible and this means anything that contains lactose. Foods that are high in lactose include all ice creams except for Dairy Negron ice cream. It is found high concentration in meats particularly hot dogs. It is found a high concentration in [place] cream cheese and a lot of desserts. It is found the end of course pizza both in the toe and in the cheeses. It is also found high concentration and many prescription medications as a filler with dried milk powder. Sepsis Event Note (ED) - Evaluation Sepsis Screening Result: No Definite Risk - Focused Exam Vital Signs: Vital Signs Temp Pulse Resp BP Pulse Ox 02/02/21 08:40 36.1 C 105 H 16 130/102 H 97 - My Orders Last 24 Hours: My Active Orders 02/02/21 08:56 STOOL CULTURE/SHIGA TOXIN [MREF] Stat 02/02/21 08:57 C DIFFICILE PCR W/REFLEX [MOLEC] Stat 02/02/21 09:00 Dextrose 5%-Lactated Ringers 1,000 ml IV ASDIRECTED 02/02/21 09:15 CELIAC AB TTG DGP TIGA [REF] Stat 02/02/21 09:53 OVA & PARASITES BY IMMUNOASSAY [MREF] Stat - Assessment/Plan Last 24 Hours: My Active Orders 02/02/21 08:56 STOOL CULTURE/SHIGA TOXIN [MREF] Stat 02/02/21 08:57 C DIFFICILE PCR W/REFLEX [MOLEC] Stat 02/02/21 09:00 Dextrose 5%-Lactated Ringers 1,000 ml IV ASDIRECTED 02/02/21 09:15 CELIAC AB TTG DGP TIGA [REF] Stat 02/02/21 09:53 OVA & PARASITES BY IMMUNOASSAY [MREF] Stat
[2021-02-02] MEDS ORDERED: Lidocaine 2% Jelly 10 ML Urojet MUCMEM ONE (08:58)
[2021-02-02] MEDS ORDERED: Dextrose 5%-Lactated Ringers 1,000 ML IV SCH (09:00)
== END 2021-02-02 12:20 | disposition home or self-care (01) ==
LOC: JD.ED 08:30
DX: K52.9 Noninfective gastroenteritis and colitis, unspecified (principal); K21.9 Gastro-esophageal reflux disease without esophagitis; Z88.0 Allergy status to penicillin; E66.9 Obesity, unspecified; E03.9 Hypothyroidism, unspecified; Z79.899 Other long term (current) drug therapy; Z72.0 Tobacco use; Z68.41 Body mass index [BMI] 40.0-44.9, adult
CPT/HCPCS: 36415; 45330; 80053; 82784; 83516; 83735; 84443; 85025; 85610; 86140; 87045; 87046; 87328; 87329; 87493; 87899; 96374; 96375; 99284; J1170; J2405; J7121; 45300

== ENCOUNTER 2021-07-15 06:28 | Day surgery (SDC) | payer MEDICAID ==
--- NOTE | 2021-07-14 11:40 | PCM.PREANE ---
<Jairo Bal R - Last Filed: 07/15/21 08:02> Preanesthetic Assessment - Anesthesia/Transfusion/Family Hx Anesthesia History: Prior Anesthesia Reaction (With EGD she had GERD with procedure) Family History of Anesthesia Reaction: No Transfusion History: No Prior Transfusion(s) Intubation History: Unknown - Review of Systems General: No Symptoms Pulmonary: No Symptoms, Other (asthma "once over last month") Gastrointestinal: No Symptoms Neurological: No Symptoms Other: Reports: Depression, Anxiety - Physical Assessment NPO Status Time: 21:00 ASA Class: 3 Mental Status: Alert & Oriented x3 Airway Class: Mallampati = 1 Dentition: Reports: Normal Dentition, Caries Thyro-Mental Finger Breadths: 3 Mouth Opening Finger Breadths: 3 ROM/Head Extension: Full Lungs: Clear to Auscultation, Normal Respiratory Effort Cardiovascular: Regular Rate, Regular Rhythm - Allergies Allergies/Adverse Reactions: Allergies Allergy/AdvReac Type Severity Reaction Status Date / Time Penicillins Allergy Anaphylactic Verified 07/15/21 07:14 Shock - Anesthesia Plan Pre-Op Medication Ordered: Other (reglan 10mg IV, Pepcid 20mg IV, and p.o. bicitra 30ml's: @ 0700) - Acknowledgements Anesthesia Type Planned: General Anesthesia Pt an Appropriate Candidate for the Planned Anesthesia: Yes Alternatives and Risks of Anesthesia Discussed w Pt/Guardian: Yes Pt/Guardian Understands and Agrees with Anesthesia Plan: Yes PreAnesthesia Questionnaire 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: Chronic Diarrhea, GERD - SUBSTANCE USE Tobacco Use Status *Q: Current Every Day Tobacco User Tobacco Use Within Last Twelve Months: Cigarettes Second Hand Smoke Exposure: No Days Per Week of Alcohol Use: 0 Number of Drinks Per Day: 0 Total Drinks Per Week: 0 Recreational Drug Use History: Yes Recreational Drug Type: Reports: Marijuana/Hashish (last used yesterday) - HOME MEDS Home Medications: Home Meds Celecoxib [CeleBREX] 100 mg PO DAILY PRN 10/05/20 [History] Loperamide [Imodium] 2 mg PO ASDIRECTED PRN 10/05/20 [History] Omeprazole 40 mg PO BID 10/05/20 [History] Albuterol Sulfate [Proair Hfa] 2 puff INH Q4H PRN 07/14/21 [History] Cyclobenzaprine [Flexeril] 5 - 10 mg PO TID PRN 07/14/21 [History] Escitalopram Oxalate [Lexapro] 10 mg PO DAILY 07/14/21 [History] Fluticasone Propionate [Flonase] 1 dose NASBOTH DAILY 07/14/21 [History] Fluticasone Propionate [Flovent HFA] 2 puff INH BID 07/14/21 [History] Ibuprofen 600 mg PO TID PRN 07/14/21 [History] QUEtiapine [SEROquel] 100 mg PO DAILY 07/14/21 [History] <Oapl Moya - Last Filed: 07/15/21 08:49> Preanesthetic Assessment - Procedure Proposed Procedure: Uterine D and C, Hysteroscopy, Novasure. - Anesthesia/Transfusion/Family Hx Anesthesia History: Prior Anesthesia Reaction Family History of Anesthesia Reaction: No Transfusion History: No Prior Transfusion(s) Intubation History: Unknown - Review of Systems Pulmonary: No Symptoms (Asthma, Smoker: 1ppd times years. Marijuana: ETOH:), Other Gastrointestinal: No Symptoms (GERD, IBS, Gastroparesis history of: aspiration risk.) Neurological: No Symptoms Other: Reports: Depression (Bipolar/PSTD), Anxiety - Physical Assessment NPO Status Date: 07/14/21 Vital Signs: HR:2 Sat:95% Temp:98 B/P:137/84 Resp:16 Height: 1.6 m Weight: 95 kg ASA Class: 3 Mental Status: Alert & Oriented x3 - Lab Values: All labs reviewed and noted and within acceptable ranges to proceed with scheduled procedure. - Anesthesia Plan Pre-Op Medication Ordered: Other (reglan 10mg IV, Pepcid 20mg IV, and p.o. bicitra 30ml's: @ 0659) - Acknowledgements Anesthesia Type Planned: General Anesthesia Pt an Appropriate Candidate for the Planned Anesthesia: Yes Alternatives and Risks of Anesthesia Discussed w Pt/Guardian: Yes Pt/Guardian Understands and Agrees with Anesthesia Plan: Yes PreAnesthesia Questionnaire 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: Chronic Diarrhea (Chronic diarrhea for last 5 to 6 years.), GERD Genitourinary History: Reports: Renal Calculus NUTRITION COORDINATOR History: Reports: Psychiatric History: Reports: Anxiety, Bipolar, Depression, PTSD Endocrine/Metabolic History: Reports: Hypothyroidism, Obesity/BMI 30+ - Past Surgical History HEENT Surgical History: Reports: Adenoidectomy, Tonsillectomy Female Surgical History: Reports: Kidney stone extraction, Lithotripsy/ESWL, Tubal Ligation, Ureteral Stent - CURRENT (IN HOUSE) MEDS Current Meds: Current Medications Lactated Ringer's (Ringers, Lactated) 1,000 mls @ 125 mls/hr IV ASDIRECTED PARAS Stop: 07/15/21 23:00 Last Admin: 07/15/21 06:59 Dose: 125 mls/hr Documented by: Clindamycin Phosphate 900 mg/ (Premix) 50 mls @ 100 mls/hr IV ONETIME ONE Stop: 07/15/21 08:28 Lidocaine/Sodium Bicarbonate (Lidocaine 1%/Sod Bicarbonate In Ns 8.4% 1 Ml Syringe) 0.25 ml IDERM ONETIME PRN PRN Reason: Prior to IV Start Stop: 07/15/21 18:00 Metoclopramide HCl (Metoclopramide 10 Mg/2 Ml Sdv) 10 mg IV ONETIME PRN PRN Reason: Nausea/Vomiting Last Admin: 07/15/21 06:59 Dose: 10 mg Documented by: Sodium Chloride (Sodium Chloride 0.9% 10 Ml Syringe) 10 ml FLUSH ASDIRECTED PRN PRN Reason: Keep Vein Open Stop: 07/15/21 18:00 Discontinued Medications Citric Acid/Sodium Citrate (Citric Acid/Sodium Citrate Solution 30 Ml Cup) 30 ml PO ONETIME ONE Stop: 07/15/21 06:34 Last Admin: 07/15/21 06:59 Dose: 30 ml Documented by: Dexamethasone (Dexamethasone 4 Mg/Ml 5 Ml Mdv) Confirm Administered Dose 20 mg .ROUTE .STK-MED ONE Stop: 07/15/21 06:50 Famotidine (Famotidine 20 Mg/2 Ml Sdv) 20 mg IVPUSH ONETIME ONE Stop: 07/15/21 06:34 Last Admin: 07/15/21 06:59 Dose: 20 mg Documented by: Fentanyl (Fentanyl 250 Mcg/5 Ml Sdv) Confirm Administered Dose 250 mcg .ROUTE .STK-MED ONE Stop: 07/15/21 06:51 Lidocaine HCl (Xylocaine-Mpf 1%) Confirm Administered Dose 4 mls @ as directed .ROUTE .STK-MED ONE Stop: 07/15/21 06:50 Lactated Ringer's (Ringers, Lactated) Confirm Administered Dose 1,000 mls @ as directed .ROUTE .STK-MED ONE Stop: 07/15/21 06:50 Ketorolac Tromethamine (Ketorolac 30 Mg/Ml Sdv) Confirm Administered Dose 30 mg .ROUTE .STK-MED ONE Stop: 07/15/21 06:50 Midazolam HCl (Midazolam 1 Mg/Ml 2 Ml Sdv) Confirm Administered Dose 2 mg .ROUTE .STK-MED ONE Stop: 07/15/21 06:51 Ondansetron HCl (Ondansetron 4 Mg/2 Ml Sdv) Confirm Administered Dose 4 mg .ROUTE .STK-MED ONE Stop: 07/15/21 06:50 Propofol (Propofol 200 Mg/20 Ml Sdv) Confirm Administered Dose 200 mg .ROUTE .STK-MED ONE Stop: 07/15/21 06:51
[~2021-07-15 06:28] MED LIST: Lactated Ringers 1,000 ML IV SCH; Lidocaine 1%/Sod Bicarbonate in NS 8.4% 1 ML Syringe IDERM PRN; Sodium Chloride 0.9% 10 ML Syringe FLUSH PRN
[2021-07-15] MEDS ORDERED: Metoclopramide 10 MG/2 ML SDV IV PRN (06:32)
[2021-07-15] MEDS ORDERED: Famotidine 20 MG/2 ML SDV IVPUSH ONE (06:33)
[2021-07-15] MEDS ORDERED: Citric Acid/Sodium Citrate Solution 30 ML Cup PO ONE (06:33)
[2021-07-15] MEDS ORDERED: Succinylcholine/Sod PF 100 MG/5 ML SYRINGE IV ONE (06:49)
[2021-07-15] MEDS ORDERED: Ondansetron 4 MG/2 ML SDV ONE (06:49)
[2021-07-15] MEDS ORDERED: Ketorolac 30 MG/ML SDV ONE (06:49)
[2021-07-15] MEDS ORDERED: Lactated Ringers 1,000 ML ONE (06:49)
[2021-07-15] MEDS ORDERED: Lidocaine 1% 4 ML ONE (06:49)
[2021-07-15] MEDS ORDERED: Dexamethasone 4 MG/ML 5 ML MDV ONE (06:49)
[2021-07-15] MEDS ORDERED: Propofol 200 MG/20 ML SDV ONE (06:50)
[2021-07-15] MEDS ORDERED: fentaNYL 250 MCG/5 ML SDV ONE (06:50)
[2021-07-15] MEDS ORDERED: Midazolam 1 MG/ML 2 ML SDV ONE (06:50)
[2021-07-15] MEDS ORDERED: Clindamycin Phosphate in D5W 900 MG in Premix Bag 1 BAG IV ONE ×2 (07:59)
[2021-07-15] MEDS ORDERED: Albuterol/Ipratropium 3.0-0.5 MG/3 ML Neb Soln NEB ONE (08:55)
[2021-07-15] MEDS ORDERED: Rocuronium 50 MG/5 ML Vial ONE (09:36)
[2021-07-15] MEDS ORDERED: Albuterol 0.083% 2.5 MG/3 ML Neb Soln ONE (10:05)
--- NOTE | 2021-07-15 10:07 | PCM.OPNOTE ---
- General Post-Op/Procedure Note Date of Surgery/Procedure: 07/15/21 Operative Procedure(s): hysteroscopy, dilation and curettage, novasure Findings: normal cavity, length 6.5, width 4, power 13, time 53 seconds Pre Op Diagnosis: menorrhagia Post-Op Diagnosis: Same Anesthesia Technique: General ET Tube Primary Surgeon: Valarie Delcid Anesthesia Provider: Opal Moya Complications: None Condition: Good Free Text/Narrative:: Taken to OR. Prepped and draped in dorsal lithotomy. Speculum placed. Anterior lip of cervix grasped with tenaculum. Cavity length obtained. Dilated to allow passage of hysteroscope. Hysteroscopy showed normal cavity. Curettage preformed. Novasure assessment passed. Novasure deployed and 53 second time. Post novasure hysteroscopy showed good effect. Instruments removed. Hemostasis at tenaculum site.
[2021-07-15] MEDS ORDERED: diphenhydrAMINE 50 MG/ML SDV IVPUSH PRN (10:28)
[2021-07-15] MEDS ORDERED: Midazolam 1 MG/ML 2 ML SDV IVPUSH PRN (10:28)
[2021-07-15] MEDS ORDERED: HYDROmorphone 0.5 MG/0.5 ML Syringe IVPUSH PRN (10:28)
[2021-07-15] MEDS ORDERED: Ondansetron 4 MG/2 ML SDV IVPUSH PRN (10:28)
[2021-07-15] MEDS ORDERED: fentaNYL 100 MCG/2 ML SDV IVPUSH PRN (10:28)
[2021-07-15] MEDS ORDERED: Albuterol 0.083% 2.5 MG/3 ML Neb Soln NEB PRN (10:28)
--- NOTE | 2021-07-15 10:31 | PCM.POSTAN ---
POST ANESTHESIA ASSESSMENT - MENTAL STATUS Mental Status: Alert - VITAL SIGNS Vital Signs: Last Vital Signs Temp 98.5 07/15/21 1016 Pulse 84 07/15/21 1016 Resp 16 07/15/21 1016 BP 93/75 07/15/21 1016 Pulse Ox 96% 07/15/21 1016 - RESPIRATORY Respiratory Status: Respiratory Rate WNL, Airway Patent, O2 Saturation Stable, Supplemental Oxygen - CARDIOVASCULAR CV Status: Pulse Rate WNL, Blood Pressure Stable - GASTROINTESTINAL GI Status: No Symptoms - POST OP HYDRATION Hydration Status: Adequate & Stable
--- NOTE | 2021-07-15 12:14 | PCM48HPAN ---
Post Anesthesia Note - EVALUATION WITHIN 48HRS OF ANESTHETIC Vital Signs in Normal Range: Yes Patient Participated in Evaluation: Yes Respiratory Function Stable: Yes Airway Patent: Yes Cardiovascular Function Stable: Yes Hydration Status Stable: Yes Pain Control Satisfactory: Yes Nausea and Vomiting Control Satisfactory: Yes Mental Status Recovered: Yes Vital Signs: Last Vital Signs Temp 36.7 C 07/15/21 06:40 Pulse 92 07/15/21 06:40 Resp 16 07/15/21 06:40 BP 134/84 07/15/21 06:40 Pulse Ox 95 07/15/21 06:40
== END 2021-07-15 11:40 | disposition home or self-care (01) ==
LOC: JD.SDS 06:28
PROVIDERS: ATTEND Obstetrics & Gynecology
DX: N92.0 Excessive and frequent menstruation with regular cycle (principal); F41.9 Anxiety disorder, unspecified; K21.9 Gastro-esophageal reflux disease without esophagitis; F32.9 Major depressive disorder, single episode, unspecified; F17.210 Nicotine dependence, cigarettes, uncomplicated; Z88.0 Allergy status to penicillin; Z79.899 Other long term (current) drug therapy; Z98.890 Other specified postprocedural states; Z20.822 Contact with and (suspected) exposure to COVID-19
CPT/HCPCS: 36415; 58558; 80053; 85025; 86850; 86900; 86901; A9270; J0330; J1100; J1170; J2250; J2405; J2704; J2765; J3010; J3490; J7120; 00952; J1885; J7620-GY

== ENCOUNTER 2021-08-13 12:44 | Emergency (ER) | payer MEDICAID | END 2021-08-13 12:57 | disposition left against medical advice (07) | LOC: JD.ED 12:44 | DX: Z53.21 Procedure and treatment not carried out due to patient leaving prior to being seen by health care provider (principal) ==

== ENCOUNTER 2021-08-13 15:45 | Emergency (ER) | payer MEDICAID | END 2021-08-13 17:10 | disposition left against medical advice (07) | LOC: JD.ED 15:45 | DX: Z53.21 Procedure and treatment not carried out due to patient leaving prior to being seen by health care provider (principal) ==

== ENCOUNTER 2021-09-05 16:31 | Emergency (ER) | payer MEDICAID ==
[2021-09-05] MEDS ORDERED: Ketorolac 30 MG/ML SDV IM ONE (18:00)
[2021-09-05] MEDS ORDERED: Metoclopramide 10 MG/2 ML SDV IM ONE (18:00)
[2021-09-05] MEDS ORDERED: diphenhydrAMINE 50 MG/ML SDV IM ONE (18:00)
--- NOTE | 2021-09-05 18:10 | EDM.PDOC ---
ED HPI GENERAL MEDICAL PROBLEM - General Chief Complaint: General Stated Complaint: HEAD AND NECK PAIN Time Seen by Provider: 09/05/21 17:42 Source of Information: Reports: Patient, RN Notes Reviewed History Limitations: Reports: No Limitations - History of Present Illness INITIAL COMMENTS - FREE TEXT/NARRATIVE: Patient is a 26-year-old female who presents to the ER for her ongoing head/neck pain. This is been going on for some time. Patient states she has been started on sumatriptan, topiramate and Flexeril for her headache and neck pain. States that the sumatriptan seem to help the migraines but states she still has a "headache". Patient has been using ibuprofen for ongoing management as well and her last dose was earlier this afternoon. She did take some Flexeril today as well and this does not seem to be helping at all. She has been try to use hot and cold to the area, and massage therapy. States that it hurts to move her neck at all, she is not sure if it is musculoskeletal or otherwise. But she is also complaining of difficulty raising her right arm. Primary care provider is Dr. Menendez. She states that she did try to call Dr. Menendez's office today however she was not in and they directed her to the ER for further management. Patient denies any other sick-like symptoms, fever/chills, cough/shortness of breath, nausea/vomiting/diarrhea. Treatments HYDRAULIC ENGINEER: Reports: Heat Therapy, NSAIDS, Other Medication(s) Right Neck Pain Score (Numeric/FACES): 8 - Related Data Allergies Allergy/AdvReac Type Severity Reaction Status Date / Time Penicillins Allergy Severe Anaphylactic Verified 09/05/21 17:46 Shock Home Meds: Home Meds Celecoxib [CeleBREX] 100 mg PO DAILY PRN 10/05/20 [History] Loperamide [Imodium] 2 mg PO ASDIRECTED PRN 10/05/20 [History] Omeprazole 40 mg PO BID 10/05/20 [History] Albuterol Sulfate [Proair Hfa] 2 puff INH Q4H PRN 07/14/21 [History] Escitalopram Oxalate [Lexapro] 10 mg PO DAILY 07/14/21 [History] QUEtiapine [SEROquel] 100 mg PO DAILY 07/14/21 [History] Orphenadrine [Norflex] 100 mg PO BID PRN #20 tab 09/05/21 [Rx] Topiramate 25 mg PO ASDIRECTED 09/05/21 [History] busPIRone [Buspar] 10 mg PO BID 09/05/21 [History] predniSONE 20 mg PO ASDIRECTED #15 tab 09/05/21 [Rx] Past Medical History HEENT History: Reports: Impaired Vision Cardiovascular History: Reports: None Respiratory History: Reports: Asthma 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: Chronic Diarrhea, GERD Other 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: gastroparesis, IBS Genitourinary History: Reports: Renal Calculus FINANCIAL CONSULTANT History: Reports: Musculoskeletal History: Reports: None Neurological History: Reports: None Psychiatric History: Reports: Anxiety, Bipolar, Depression, PTSD Endocrine/Metabolic History: Reports: Hypothyroidism, Obesity/BMI 30+ Hematologic History: Reports: None Immunologic History: Reports: None Oncologic (Cancer) History: Reports: None Dermatologic History: Reports: None - Infectious Disease History Infectious Disease History: Reports: None - Past Surgical History Head Surgeries/Procedures: Reports: None HEENT Surgical History: Reports: Adenoidectomy, Tonsillectomy Cardiovascular Surgical History: Reports: None Respiratory Surgical History: Reports: None GI Surgical History: Reports: Colonoscopy, EGD Female Surgical History: Reports: Kidney stone extraction, Lithotripsy/ESWL, Tubal Ligation, Ureteral Stent Endocrine Surgical History: Reports: None Neurological Surgical History: Reports: None Musculoskeletal Surgical History: Reports: None Oncologic Surgical History: Reports: None Dermatological Surgical History: Reports: None Social & Family History - Caffeine Use Caffeine Use: Reports: Soda, Tea - Living Situation & Occupation Living situation: Reports: Single, with Significant Other (Boyfriend), with Family (3 kids) Occupation: Unemployed ED ROS GENERAL - Review of Systems Review Of Systems: Comprehensive ROS is negative, except as noted in HPI. ED EXAM, GENERAL - Physical Exam Exam: See Below Exam Limited By: No Limitations General Appearance: Alert, WD/WN, No Apparent Distress Eye Exam: Bilateral Eye: EOMI, Normal Inspection, PERRL Neck: Limited Range of Motion (of neck d/t pain, states that it hurts to move her neck in any ROM) Respiratory/Chest: No Respiratory Distress, Lungs Clear, Normal Breath Sounds, No Accessory Muscle Use, Chest Non-Tender Cardiovascular: Normal Peripheral Pulses, Regular Rate, Rhythm, No Edema Extremities: Normal Inspection, Normal Capillary Refill Neurological: Alert, Oriented, Normal Cognition, No Motor/Sensory Deficits Psychiatric: Normal Affect, Normal Mood Skin Exam: Warm, Dry, Intact, Normal Color, No Rash Course - Vital Signs Last Recorded V/S: Last Vital Signs Temp 97.9 F 09/05/21 17:43 Pulse 80 09/05/21 17:43 Resp 20 09/05/21 17:43 BP 115/80 09/05/21 17:43 Pulse Ox 100 09/05/21 17:43 - Orders/Labs/Meds Meds: Medications Discontinued Medications Generic Name Dose Route Start Last Admin Trade Name Miguelq PRN Reason Stop Dose Admin Diphenhydramine HCl 25 mg 09/05/21 18:00 09/05/21 18:23 Diphenhydramine 50 Mg/Ml Sdv IM 09/05/21 18:01 25 mg ONETIME ONE Administration Ketorolac Tromethamine 30 mg 09/05/21 18:00 09/05/21 18:22 Ketorolac 30 Mg/Ml Sdv IM 09/05/21 18:01 30 mg ONETIME ONE Administration Metoclopramide HCl 10 mg 09/05/21 18:00 09/05/21 18:24 Metoclopramide 10 Mg/2 Ml Sdv IM 09/05/21 18:01 10 mg ONETIME ONE Administration - Re-Assessments/Exams Free Text/Narrative Re-Assessment/Exam: 09/05/21 18:09 Patient presents to the ER for evaluation of her head and neck pain, we will go ahead and do a CT of her head as this is been going on for some time, and she is now having some right arm weakness/difficulty with range of motion. Albeit this is likely musculoskeletal; I do believe a neurological evaluation is warranted. We will give the patient Toradol, Reglan and Benadryl for her headache. Plan would be to start the patient hopefully on Norflex versus Flexeril, and trial prednisone with her if head CT is negative. 09/05/21 19:07 Patient states that she has had a prolonged wait and would like to not have a CT performed, this seems fine with me she states she will follow up with Dr. Menendez for outpatient management. States that she does have her neck pain still, and thinks she may have slept wrong on her pillow but the headache has gone away after the medications. We will trial her on Norflex have her stop the Flexeril, we will have her take oral prednisone as well for ongoing management have her stop ibuprofen. Departure - Departure Time of Disposition: 19:08 Disposition: Home, Self-Care 01 Condition: Good Clinical Impression: Torticollis Headache Qualifiers: Headache type: tension-type Headache chronicity pattern: acute headache Intractability: not intractable Qualified Code(s): G44.209 - Tension-type headache, unspecified, not intractable - Discharge Information *PRESCRIPTION DRUG MONITORING PROGRAM REVIEWED*: No *COPY OF PRESCRIPTION DRUG MONITORING REPORT IN PATIENT MARVA: No Instructions: General Headache Without Cause, [id number], Acute Torticollis, Adult Referrals: Aby Murry MD [Primary Care Provider] - Forms: ED Department Discharge Additional Instructions: You were evaluated in the ED for your headache and neck pain. You were given a combination of medications for management. This did seem to provide you pretty good relief of your symptoms. Recommend that you go home and rest in a quiet, darkened room. Try also to keep well hydrated. Neck pain is thought to be due to a pinched nerve, or musculoskeletal origin, you need to stop Flexeril and oral ibuprofen. You have been given a prescription for oral Norflex and prednisone. Please take the prednisone 2 times a day for the first 5 days and then once daily for the last 5 days. Norflex will be 2 times a day as needed for muscle spasms. Please note that this medication can make you a little bit sleepy, so try to caution use of this during the day until you know how its going to affect you. This medication was electronically sent to the [place] [facility]. Recommend you follow-up with Dr. Menendez for outpatient CT purposes as your headache has been going on for some time and it does probably warrant further investigation rather than medication at this time. Please return to the ED if your symptoms should change or worsen. Sepsis Event Note (ED) - Focused Exam Vital Signs: Vital Signs Temp Pulse Resp BP Pulse Ox 09/05/21 17:43 97.9 F 80 20 115/80 100
== END 2021-09-05 19:35 | disposition home or self-care (01) ==
LOC: JD.ED 16:31
DX: G44.209 Tension-type headache, unspecified, not intractable (principal); M43.6 Torticollis; K21.9 Gastro-esophageal reflux disease without esophagitis; E03.9 Hypothyroidism, unspecified; E66.9 Obesity, unspecified; Z68.41 Body mass index [BMI] 40.0-44.9, adult; Z79.899 Other long term (current) drug therapy
CPT/HCPCS: 96372; 99283; J1200; J1885; J2765

== ENCOUNTER 2021-10-05 16:13 | Emergency (ER) | payer MEDICAID ==
[2021-10-05] MEDS ORDERED: HYDROmorphone 0.5 MG/0.5 ML Syringe IVPUSH ONE ×2 (16:45→19:02)
[2021-10-05] MEDS ORDERED: Ondansetron 4 MG/2 ML SDV IVPUSH ONE (16:45)
[2021-10-05] MEDS ORDERED: Ketorolac 30 MG/ML SDV IVPUSH SCH (16:45)
[2021-10-05] MEDS ORDERED: Dextrose 5%-0.9% NaCl 1,000 ML IV SCH (16:45)
== END 2021-10-05 19:15 | disposition home or self-care (01) ==
LOC: JD.ED 16:13
DX: F32.2 Major depressive disorder, single episode, severe without psychotic features (principal); R51.9 Headache, unspecified; M79.7 Fibromyalgia; E66.9 Obesity, unspecified; Z88.0 Allergy status to penicillin; Z79.899 Other long term (current) drug therapy; Z68.39 Body mass index [BMI] 39.0-39.9, adult
CPT/HCPCS: 36415; 70450; 71045; 80053; 81001; 82550; 83735; 84443; 85025; 85652; 86140; 87086; 96374; 96375; 96376; 99284; J1170; J1885; J2405; J7042; 99285